=== PATIENT | male | born 1945 | race Caucasian/White ===

== ENCOUNTER 2017-06-23 15:01 | Emergency (ER) | payer BC, OTHER ==
[~2017-06-23] VITALS: Ht 170.2 cm; Wt 75.3 kg
[~2017-06-23 15:01] MED LIST: BENAZEPRIL HCL/1 TA2 PO; BIO-CEF500 MG PO
[2017-06-23 19:20] VITALS: BP 154/60
== END 2017-06-23 16:32 | disposition home or self-care (01) ==
LOC: ED 15:01
DX: H66.93 Otitis media, unspecified, bilateral (principal); I10 Essential (primary) hypertension; E11.9 Type 2 diabetes mellitus without complications; Z79.84 Long term (current) use of oral hypoglycemic drugs; Z79.899 Other long term (current) drug therapy

== ENCOUNTER 2017-09-07 23:06 | Emergency (ER) | payer BC, OTHER ==
[2017-09-07 23:45] VITALS: BP 130/70
== END 2017-09-08 03:14 | disposition left against medical advice (07) ==
LOC: ED 23:06
DX: Z53.21 Procedure and treatment not carried out due to patient leaving prior to being seen by health care provider (principal)

== ENCOUNTER 2017-09-13 00:42 | Emergency (ER) | payer BC, OTHER ==
[~2017-09-13] VITALS: Ht 172.7 cm; Wt 78.5 kg
[2017-09-13 00:50] VITALS: Ht 172.7 cm; Wt 78.5 kg
[2017-09-13 02:09] VITALS: BP 142/74
== END 2017-09-13 02:10 | disposition home or self-care (01) ==
LOC: ED 00:42
DX: R21 Rash and other nonspecific skin eruption (principal); I10 Essential (primary) hypertension; E11.9 Type 2 diabetes mellitus without complications; E78.00 Pure hypercholesterolemia, unspecified
CPT/HCPCS: J1200; J2930

== ENCOUNTER 2017-11-03 21:50 | Emergency (ER) | payer BC, OTHER ==
[~2017-11-03] VITALS: Ht 170.2 cm; Wt 76.2 kg
[2017-11-03 22:07] VITALS: Ht 170.2 cm; Wt 76.2 kg
[2017-11-04 01:53] VITALS: BP 133/72
== END 2017-11-04 01:53 | disposition home or self-care (01) ==
LOC: ED 21:50
DX: M54.5 Low back pain (principal); E11.9 Type 2 diabetes mellitus without complications; I10 Essential (primary) hypertension; E78.00 Pure hypercholesterolemia, unspecified

== ENCOUNTER 2019-03-02 14:57 | Emergency (ER) | payer BC, OTHER ==
[~2019-03-02] VITALS: Ht 167.6 cm; Wt 78.9 kg
[2019-03-02 15:01] VITALS: Ht 167.6 cm; Wt 78.9 kg
[2019-03-02 15:25] LABS: BASOPHIL % 0.3 % (0-2); PLATELET COUNT 336 x10^3mcL (130-400); RED CELL DISTRIBUTION WIDTH 14.2 % (11.5-14.5)
[2019-03-02 15:47] LABS: ALBUMIN 3.7 g/dL (3.4-5.0); ALKALINE PHOSPHATASE 66 U/L (46-116); ALT/SGPT 35 U/L (16-63); AST/SGOT 12 U/L (15-37); BILIRUBIN TOTAL 0.2 mg/dL (0.20-1.00); CALCIUM 9.3 mg/dL (8.5-10.1); CARBON DIOXIDE 25.2 mmol/L (21-32); CHLORIDE SERUM 100 mmol/L (98-107); CREATININE SERUM 1.2 mg/dL (0.7-1.3); GLUCOSE SERUM 150 mg/dL (74-106); POTASSIUM SERUM 4.3 mmol/L (3.5-5.1); SODIUM SERUM 135 mmol/L (136-145); TOTAL PROTEIN, SERUM 7.1 g/dL (6.4-8.2)
[2019-03-02 16:16] VITALS: BP 131/63
== END 2019-03-02 16:16 | disposition home or self-care (01) ==
LOC: ED 14:57
DX: J40 Bronchitis, not specified as acute or chronic (principal); F17.210 Nicotine dependence, cigarettes, uncomplicated; E78.00 Pure hypercholesterolemia, unspecified; I10 Essential (primary) hypertension; E11.9 Type 2 diabetes mellitus without complications; Z98.890 Other specified postprocedural states
CPT/HCPCS: 36415; 99406

== ENCOUNTER 2019-05-03 13:45 | Emergency (ER) | payer BC, OTHER ==
[~2019-05-03] VITALS: Ht 170.2 cm; Wt 75.7 kg
[2019-05-03 13:52] VITALS: Ht 170.2 cm; Wt 75.7 kg
[2019-05-03 14:25] LABS: BASOPHIL % 0.3 % (0-2); RED CELL DISTRIBUTION WIDTH 14.1 % (11.5-14.5)
[2019-05-03 14:28] LABS: PLATELET COUNT 597 x10^3mcL (130-400)
[2019-05-03 15:07] LABS: ALBUMIN 3.7 g/dL (3.4-5.0); ALKALINE PHOSPHATASE 78 U/L (46-116); ALT/SGPT 30 U/L (16-63); AST/SGOT 22 U/L (15-37); BILIRUBIN TOTAL 0.3 mg/dL (0.20-1.00); CALCIUM 8.8 mg/dL (8.5-10.1); CARBON DIOXIDE 24.7 mmol/L (21-32); CREATININE SERUM 1.6 mg/dL (0.7-1.3); GLUCOSE SERUM 139 mg/dL (74-106); TOTAL PROTEIN, SERUM 7.3 g/dL (6.4-8.2)
[2019-05-03 15:30] LABS: CHLORIDE SERUM 99 mmol/L (98-107); SODIUM SERUM 137 mmol/L (136-145)
[2019-05-03 17:27] LABS: microscopic required? NO
[2019-05-03 17:51] LABS: urine erythrocyte NEGATIVE (NEGATIVE)
[2019-05-03 18:59] VITALS: BP 141/60
== END 2019-05-03 18:59 | disposition home or self-care (01) ==
LOC: ED 13:45
DX: E86.0 Dehydration (principal); R11.2 Nausea with vomiting, unspecified; F17.210 Nicotine dependence, cigarettes, uncomplicated; E78.00 Pure hypercholesterolemia, unspecified; I10 Essential (primary) hypertension; E11.9 Type 2 diabetes mellitus without complications; Z88.5 Allergy status to narcotic agent; Z71.6 Tobacco abuse counseling
CPT/HCPCS: 82962; 99406; J2405; J7030

== ENCOUNTER 2019-10-04 17:13 | Emergency (ER) | payer OTHER ==
[~2019-10-04] VITALS: Ht 170.2 cm; Wt 77.1 kg
[2019-10-04 17:23] VITALS: Ht 170.2 cm; Wt 77.1 kg
[2019-10-04 18:47] LABS: BASOPHIL % 0.4 % (0-2); PLATELET COUNT 380 x10^3mcL (130-400)
[2019-10-04 18:52] LABS: RED CELL DISTRIBUTION WIDTH 18.5 % (11.5-14.5)
[2019-10-04 19:05] LABS: CALCIUM 8.9 mg/dL (8.5-10.1); CARBON DIOXIDE 27.1 mmol/L (21-32); CHLORIDE SERUM 98 mmol/L (98-107); CREATININE SERUM 1.2 mg/dL (0.7-1.3); GLUCOSE SERUM 151 mg/dL (74-106); POTASSIUM SERUM 4.1 mmol/L (3.5-5.1); SODIUM SERUM 136 mmol/L (136-145)
[2019-10-04 19:10] LABS: ALBUMIN 4.1 g/dL (3.4-5.0); ALKALINE PHOSPHATASE 76 U/L (46-116); ALT/SGPT 30 U/L (16-63); AST/SGOT 18 U/L (15-37); BILIRUBIN TOTAL 0.2 mg/dL (0.20-1.00); TOTAL PROTEIN, SERUM 7.6 g/dL (6.4-8.2)
[2019-10-04 19:19] LABS: C REACTIVE PROTEIN < 0.2 mg/dL (<=0.9)
[2019-10-04 21:26] VITALS: BP 107/55
== END 2019-10-04 21:37 | disposition home or self-care (01) ==
LOC: ED 17:13
PROVIDERS: Emergency Medicine
DX: L03.113 Cellulitis of right upper limb (principal); E78.00 Pure hypercholesterolemia, unspecified; I10 Essential (primary) hypertension; E11.9 Type 2 diabetes mellitus without complications; Z88.5 Allergy status to narcotic agent; Z98.890 Other specified postprocedural states
CPT/HCPCS: 36415; J2543

== ENCOUNTER 2019-10-06 15:28 | Emergency (ER) | payer OTHER ==
[~2019-10-06] VITALS: Ht 177.8 cm; Wt 77.1 kg
[2019-10-06 15:45] VITALS: BP 133/48; Ht 177.8 cm; Wt 77.1 kg
[2019-10-06 16:09] LABS: BASOPHIL % 0.1 % (0-2); PLATELET COUNT 340 x10^3mcL (130-400); RED CELL DISTRIBUTION WIDTH 18.4 % (11.5-14.5)
[2019-10-06 16:13] LABS: CALCIUM 8.6 mg/dL (8.5-10.1); CARBON DIOXIDE 22.9 mmol/L (21-32); CHLORIDE SERUM 100 mmol/L (98-107); CREATININE SERUM 1.5 mg/dL (0.7-1.3); GLUCOSE SERUM 144 mg/dL (74-106); POTASSIUM SERUM 4.6 mmol/L (3.5-5.1); SODIUM SERUM 134 mmol/L (136-145)
[2019-10-06 16:19] LABS: ALBUMIN 3.6 g/dL (3.4-5.0); ALKALINE PHOSPHATASE 72 U/L (46-116); ALT/SGPT 29 U/L (16-63); AST/SGOT 19 U/L (15-37); BILIRUBIN TOTAL 0.2 mg/dL (0.20-1.00); TOTAL PROTEIN, SERUM 6.8 g/dL (6.4-8.2)
== END 2019-10-06 17:08 | disposition home or self-care (01) ==
LOC: ED 15:28
PROVIDERS: Emergency Medicine
DX: S50.811A Abrasion of right forearm, initial encounter (principal); L03.113 Cellulitis of right upper limb; I10 Essential (primary) hypertension; E11.9 Type 2 diabetes mellitus without complications; E78.00 Pure hypercholesterolemia, unspecified; Z98.890 Other specified postprocedural states; Z88.8 Allergy status to other drugs, medicaments and biological substances; W01.0XXA Fall on same level from slipping, tripping and stumbling without subsequent striking against object, initial encounter; Y93.89 Activity, other specified; Y92.89 Other specified places as the place of occurrence of the external cause; Y99.8 Other external cause status
CPT/HCPCS: 36415; 82962; 90715

== ENCOUNTER 2019-10-07 23:21 | Emergency (ER) | payer OTHER ==
[~2019-10-07] VITALS: Ht 170.2 cm; Wt 77.1 kg
[2019-10-07 23:32] VITALS: BP 112/73; Ht 170.2 cm; Wt 77.1 kg
== END 2019-10-08 01:53 | disposition left against medical advice (07) ==
LOC: ED 23:21
DX: Z53.21 Procedure and treatment not carried out due to patient leaving prior to being seen by health care provider (principal)

== ENCOUNTER 2019-10-08 11:30 | Observation (INO) | payer OTHER ==
[~2019-10-08] VITALS: Ht 170.2 cm; Wt 77.1 kg
[2019-10-08 11:41] VITALS: Ht 170.2 cm; Wt 77.1 kg
[2019-10-08 13:05] LABS: microscopic required? NO
[2019-10-08 13:16] LABS: BASOPHIL % 0.2 % (0-2); PLATELET COUNT 333 x10^3mcL (130-400)
[2019-10-08 13:18] LABS: RED CELL DISTRIBUTION WIDTH 18.8 % (11.5-14.5)
[2019-10-08 13:24] LABS: CALCIUM 8.8 mg/dL (8.5-10.1); CARBON DIOXIDE 22.8 mmol/L (21-32); CHLORIDE SERUM 100 mmol/L (98-107); CREATININE SERUM 1.8 mg/dL (0.7-1.3); GLUCOSE SERUM 145 mg/dL (74-106); POTASSIUM SERUM 4.9 mmol/L (3.5-5.1); SODIUM SERUM 135 mmol/L (136-145)
[2019-10-08 13:27] LABS: ALBUMIN 3.5 g/dL (3.4-5.0); ALKALINE PHOSPHATASE 65 U/L (46-116); ALT/SGPT 28 U/L (16-63); AST/SGOT 22 U/L (15-37); BILIRUBIN TOTAL 0.3 mg/dL (0.20-1.00); TOTAL PROTEIN, SERUM 6.5 g/dL (6.4-8.2)
[2019-10-08 13:36] LABS: UA SPECIFIC GRAVITY 1.015 (1.005-1.035); urine erythrocyte NEGATIVE (NEGATIVE)
[2019-10-08 15:57] LABS: BASOPHIL % 0.6 % (0-2); PLATELET COUNT 317 x10^3mcL (130-400); RED CELL DISTRIBUTION WIDTH 18.7 % (11.5-14.5)
[2019-10-08 16:38] VITALS: BP 125/70
[2019-10-08 16:48] LABS: ALBUMIN 3.5 g/dL (3.4-5.0); ALKALINE PHOSPHATASE 64 U/L (46-116); ALT/SGPT 30 U/L (16-63); BILIRUBIN TOTAL 0.2 mg/dL (0.20-1.00); CALCIUM 8.9 mg/dL (8.5-10.1); CARBON DIOXIDE 24.3 mmol/L (21-32); CHLORIDE SERUM 100 mmol/L (98-107); CREATININE SERUM 1.6 mg/dL (0.7-1.3); GLUCOSE SERUM 106 mg/dL (74-106); POTASSIUM SERUM 4.7 mmol/L (3.5-5.1); SODIUM SERUM 134 mmol/L (136-145); TOTAL PROTEIN, SERUM 6.6 g/dL (6.4-8.2)
[2019-10-08 17:30] LABS: AST/SGOT 18 U/L (15-37)
[2019-10-08 20:29] VITALS: BP 130/48
[2019-10-09 05:20] VITALS: BP 126/57
[2019-10-09 08:50] VITALS: BP 138/47
[2019-10-09 12:42] VITALS: BP 132/55
[2019-10-09 15:57] LABS: BASOPHIL % 0.4 % (0-2); PLATELET COUNT 323 x10^3mcL (130-400)
[2019-10-09 16:04] LABS: RED CELL DISTRIBUTION WIDTH 18.4 % (11.5-14.5)
[2019-10-09 16:09] LABS: ALBUMIN 3.6 g/dL (3.4-5.0); ALKALINE PHOSPHATASE 68 U/L (46-116); ALT/SGPT 27 U/L (16-63); AST/SGOT 21 U/L (15-37); BILIRUBIN TOTAL 0.3 mg/dL (0.20-1.00); CALCIUM 8.8 mg/dL (8.5-10.1); CARBON DIOXIDE 27.1 mmol/L (21-32); CHLORIDE SERUM 97 mmol/L (98-107); CREATININE SERUM 1.4 mg/dL (0.7-1.3); GLUCOSE SERUM 126 mg/dL (74-106); POTASSIUM SERUM 4.4 mmol/L (3.5-5.1); SODIUM SERUM 133 mmol/L (136-145); TOTAL PROTEIN, SERUM 6.9 g/dL (6.4-8.2)
[2019-10-09 16:56] VITALS: BP 137/54
[2019-10-09 21:13] VITALS: BP 91/52
[2019-10-10 05:14] VITALS: BP 139/58
[2019-10-10 06:58] LABS: BASOPHIL % 0.2 % (0-2); PLATELET COUNT 328 x10^3mcL (130-400)
[2019-10-10 07:28] LABS: RED CELL DISTRIBUTION WIDTH 18.7 % (11.5-14.5)
[2019-10-10 08:18] VITALS: BP 146/56
[2019-10-10 11:11] VITALS: BP 146/56
== END 2019-10-10 11:46 | disposition home or self-care (01) ==
LOC: ED 11:30 → MU 15:26
PROVIDERS: Emergency Medicine; Internal Medicine Pulmonary Disease; ADMIT Hospitalist
DX: L03.113 Cellulitis of right upper limb (principal); E11.9 Type 2 diabetes mellitus without complications; I10 Essential (primary) hypertension; F17.210 Nicotine dependence, cigarettes, uncomplicated
CPT/HCPCS: G0378; J0690; J1644; J3370; J3490; J7050; Q0092; Q0163

== ENCOUNTER 2019-10-16 20:06 | Emergency (ER) | payer OTHER ==
[~2019-10-16] VITALS: Ht 170.2 cm; Wt 76.2 kg
[2019-10-16 20:11] VITALS: Ht 170.2 cm; Wt 76.2 kg
[2019-10-16 21:04] VITALS: BP 138/82
== END 2019-10-16 21:04 | disposition home or self-care (01) ==
LOC: ED 20:06
DX: L03.114 Cellulitis of left upper limb (principal); L03.113 Cellulitis of right upper limb; L40.9 Psoriasis, unspecified; G89.29 Other chronic pain; M54.9 Dorsalgia, unspecified; I10 Essential (primary) hypertension; E78.00 Pure hypercholesterolemia, unspecified
CPT/HCPCS: Q0163

== ENCOUNTER 2019-11-05 22:35 | Emergency (ER) | payer OTHER ==
[~2019-11-05] VITALS: Ht 170.2 cm; Wt 75.7 kg
[2019-11-05 23:01] VITALS: Ht 170.2 cm; Wt 75.7 kg
[2019-11-06 01:46] VITALS: BP 122/46
== END 2019-11-06 01:46 | disposition home or self-care (01) ==
LOC: ED 22:35
DX: J44.1 Chronic obstructive pulmonary disease with (acute) exacerbation (principal); I10 Essential (primary) hypertension; E11.9 Type 2 diabetes mellitus without complications; E78.00 Pure hypercholesterolemia, unspecified; Z88.5 Allergy status to narcotic agent
CPT/HCPCS: 87804; J1885; Q0092

== ENCOUNTER 2019-11-24 19:22 | Emergency (ER) | payer OTHER ==
[~2019-11-24] VITALS: Ht 170.2 cm; Wt 76.2 kg
[2019-11-24 20:59] VITALS: BP 134/89
== END 2019-11-24 20:55 | disposition home or self-care (01) ==
LOC: ED 19:22
DX: S51.811A Laceration without foreign body of right forearm, initial encounter (principal); I10 Essential (primary) hypertension; E11.9 Type 2 diabetes mellitus without complications; E78.00 Pure hypercholesterolemia, unspecified; Z88.5 Allergy status to narcotic agent; W18.30XA Fall on same level, unspecified, initial encounter; Y93.89 Activity, other specified; Y92.89 Other specified places as the place of occurrence of the external cause; Y99.8 Other external cause status

== ENCOUNTER 2019-12-10 20:49 | Emergency (ER) | payer OTHER ==
[~2019-12-10] VITALS: Ht 170.2 cm; Wt 74.4 kg
[2019-12-10 20:59] VITALS: Ht 170.2 cm; Wt 74.4 kg
[2019-12-10 21:50] VITALS: BP 168/63
== END 2019-12-10 21:54 | disposition home or self-care (01) ==
LOC: ED 20:49
DX: L03.113 Cellulitis of right upper limb (principal); L29.9 Pruritus, unspecified; I10 Essential (primary) hypertension; E11.9 Type 2 diabetes mellitus without complications; E78.00 Pure hypercholesterolemia, unspecified; Z98.890 Other specified postprocedural states; Z88.8 Allergy status to other drugs, medicaments and biological substances

== ENCOUNTER 2020-03-25 20:23 | Emergency (ER) | payer OTHER ==
[~2020-03-25] VITALS: Ht 170.2 cm; Wt 76.7 kg
[2020-03-25 20:35] VITALS: BP 133/70; Ht 170.2 cm; Wt 76.7 kg
== END 2020-03-25 22:05 | disposition home or self-care (01) ==
LOC: ED 20:23
DX: K64.4 Residual hemorrhoidal skin tags (principal); E78.00 Pure hypercholesterolemia, unspecified; Z98.890 Other specified postprocedural states; Z88.8 Allergy status to other drugs, medicaments and biological substances

== ENCOUNTER 2020-04-09 14:45 | Emergency (ER) | payer OTHER ==
[~2020-04-09] VITALS: Ht 167.6 cm; Wt 76.7 kg
[2020-04-09 14:52] VITALS: Ht 167.6 cm; Wt 76.7 kg
[2020-04-09 16:04] LABS: PLATELET COUNT 306 x10^3mcL (130-400)
[2020-04-09 16:07] LABS: RED CELL DISTRIBUTION WIDTH 15.5 % (11.5-14.5)
[2020-04-09 16:20] LABS: CALCIUM 8.8 mg/dL (8.5-10.1); CARBON DIOXIDE 34.1 mmol/L (21-32); CHLORIDE SERUM 96 mmol/L (98-107); CREATININE SERUM 1.2 mg/dL (0.7-1.3); GLUCOSE SERUM 125 mg/dL (74-106); POTASSIUM SERUM 4.1 mmol/L (3.5-5.1); SODIUM SERUM 131 mmol/L (136-145)
[2020-04-09 16:33] LABS: ALBUMIN 3.4 g/dL (3.4-5.0); ALKALINE PHOSPHATASE 74 U/L (46-116); ALT/SGPT 20 U/L (16-63); AST/SGOT 18 U/L (15-37); BILIRUBIN TOTAL 0.23 mg/dL (0.20-1.00); TOTAL PROTEIN, SERUM 6.4 g/dL (6.4-8.2)
[2020-04-09 19:05] VITALS: BP 128/76
== END 2020-04-09 19:05 | disposition left against medical advice (07) ==
LOC: ED 14:45
PROVIDERS: Emergency Medicine
DX: L03.114 Cellulitis of left upper limb (principal); R42 Dizziness and giddiness; I10 Essential (primary) hypertension; E78.00 Pure hypercholesterolemia, unspecified; Z88.8 Allergy status to other drugs, medicaments and biological substances
CPT/HCPCS: J0696; J7030; J7060

== ENCOUNTER 2020-04-16 00:01 | Emergency (ER) | payer OTHER ==
[~2020-04-16] VITALS: Ht 172.7 cm; Wt 76.7 kg
[2020-04-16 00:08] VITALS: Ht 172.7 cm; Wt 76.7 kg
[2020-04-16 01:42] LABS: PLATELET COUNT 316 x10^3mcL (130-400)
[2020-04-16 01:43] LABS: BASOPHIL % 2.9 % (0-2); RED CELL DISTRIBUTION WIDTH 14.7 % (11.5-14.5)
[2020-04-16 02:34] LABS: ALBUMIN 3.7 g/dL (3.4-5.0); ALKALINE PHOSPHATASE 68 U/L (46-116); ALT/SGPT 22 U/L (16-63); AST/SGOT 20 U/L (15-37); BILIRUBIN TOTAL 0.4 mg/dL (0.20-1.00); CALCIUM 9.3 mg/dL (8.5-10.1); CARBON DIOXIDE 22.7 mmol/L (21-32); CHLORIDE SERUM 89 mmol/L (98-107); CREATININE SERUM 1.3 mg/dL (0.7-1.3); GLUCOSE SERUM 143 mg/dL (74-106); POTASSIUM SERUM 3.7 mmol/L (3.5-5.1); TOTAL PROTEIN, SERUM 6.6 g/dL (6.4-8.2)
[2020-04-16 02:44] LABS: SODIUM SERUM 123 mmol/L (136-145)
[2020-04-16 04:09] VITALS: BP 163/57
== END 2020-04-16 04:09 | disposition left against medical advice (07) ==
LOC: ED 00:01 → EDBEDREQ 02:57 → ED 02:57 → DU 02:57
PROVIDERS: Emergency Medicine
DX: I24.9 Acute ischemic heart disease, unspecified (principal); E87.1 Hypo-osmolality and hyponatremia; F17.210 Nicotine dependence, cigarettes, uncomplicated; E78.00 Pure hypercholesterolemia, unspecified; I10 Essential (primary) hypertension; Z98.890 Other specified postprocedural states; Z88.8 Allergy status to other drugs, medicaments and biological substances
CPT/HCPCS: 83880; 99406; J7030; Q0092

== ENCOUNTER 2020-05-04 20:34 | Emergency (ER) | payer OTHER ==
[~2020-05-04] VITALS: Ht 170.2 cm; Wt 75.3 kg
[2020-05-04 22:37] VITALS: BP 143/60
== END 2020-05-04 22:38 | disposition home or self-care (01) ==
LOC: ED 20:34
DX: H65.93 Unspecified nonsuppurative otitis media, bilateral (principal); F17.210 Nicotine dependence, cigarettes, uncomplicated; E78.00 Pure hypercholesterolemia, unspecified; I10 Essential (primary) hypertension; Z98.890 Other specified postprocedural states; Z88.8 Allergy status to other drugs, medicaments and biological substances
CPT/HCPCS: 99406

== ENCOUNTER 2020-06-04 20:30 | Emergency (ER) | payer OTHER ==
[~2020-06-04] VITALS: Ht 170.2 cm; Wt 88.9 kg
[2020-06-04 20:45] VITALS: Ht 170.2 cm; Wt 88.9 kg
[2020-06-04 22:38] VITALS: BP 114/62
== END 2020-06-04 22:38 | disposition home or self-care (01) ==
LOC: ED 20:30
DX: J45.901 Unspecified asthma with (acute) exacerbation (principal); I10 Essential (primary) hypertension; E78.00 Pure hypercholesterolemia, unspecified; Z88.5 Allergy status to narcotic agent
CPT/HCPCS: 99406; Q0092

== ENCOUNTER 2020-10-01 00:21 | Emergency (ER) | payer OTHER ==
[~2020-10-01] VITALS: Ht 172.7 cm; Wt 80.7 kg
[2020-10-01 00:28] VITALS: Ht 172.7 cm; Wt 80.7 kg
[2020-10-01 02:35] VITALS: BP 166/58
== END 2020-10-01 02:36 | disposition home or self-care (01) ==
LOC: ED 00:21
DX: G44.209 Tension-type headache, unspecified, not intractable (principal); I10 Essential (primary) hypertension; E11.9 Type 2 diabetes mellitus without complications; J44.9 Chronic obstructive pulmonary disease, unspecified; E78.00 Pure hypercholesterolemia, unspecified; Z88.8 Allergy status to other drugs, medicaments and biological substances
CPT/HCPCS: J1885; J2765

== ENCOUNTER 2020-10-04 16:05 | Emergency (ER) | payer OTHER ==
[~2020-10-04] VITALS: Ht 172.7 cm; Wt 77.1 kg
[2020-10-04 16:07] VITALS: Ht 172.7 cm; Wt 77.1 kg
[2020-10-04 17:15] LABS: BASOPHIL % 1.5 % (0.2-1.5); PLATELET COUNT 319 x10^3mcL (152-348); RED CELL DISTRIBUTION WIDTH 13.3 % (12.1-16.2)
[2020-10-04 17:27] LABS: CALCIUM 9.3 mg/dL (8.5-10.1); CARBON DIOXIDE 28.6 mmol/L (21-32); CHLORIDE SERUM 98 mmol/L (98-107); CREATININE SERUM 1.5 mg/dL (0.7-1.3); GLUCOSE SERUM 144 mg/dL (74-106); SODIUM SERUM 133 mmol/L (136-145)
[2020-10-04 17:41] LABS: ALBUMIN 3.8 g/dL (3.4-5.0); ALKALINE PHOSPHATASE 69 U/L (46-116); ALT/SGPT 28 U/L (16-63); AST/SGOT 25 U/L (15-37); BILIRUBIN TOTAL 0.37 mg/dL (0.20-1.00); TOTAL PROTEIN, SERUM 6.9 g/dL (6.4-8.2)
[2020-10-04] MEDS ORDERED: VERTICALM25 MG PO (18:15)
[2020-10-04 18:25] VITALS: BP 139/65
== END 2020-10-04 18:25 | disposition home or self-care (01) ==
LOC: ED 16:05
PROVIDERS: Emergency Medicine
DX: R42 Dizziness and giddiness (principal); R51.9 Headache, unspecified; J44.9 Chronic obstructive pulmonary disease, unspecified; I10 Essential (primary) hypertension; E11.9 Type 2 diabetes mellitus without complications; E78.00 Pure hypercholesterolemia, unspecified
CPT/HCPCS: J8597

== ENCOUNTER 2020-11-02 11:17 | Inpatient (IN) | payer OTHER ==
[~2020-11-02] VITALS: Ht 170.2 cm; Wt 79.9 kg
[~2020-11-02 11:17] MED LIST changes: +VERTICALM25 MG PO
[2020-11-02 11:23] VITALS: Ht 170.2 cm; Wt 79.9 kg
[2020-11-02 12:03] LABS: BASOPHIL % 1.5 % (0.2-1.5); PLATELET COUNT 357 x10^3mcL (152-348); RED CELL DISTRIBUTION WIDTH 13.2 % (12.1-16.2)
[2020-11-02 12:24] LABS: ALBUMIN 3.9 g/dL (3.4-5.0); ALKALINE PHOSPHATASE 72 U/L (46-116); ALT/SGPT 42 U/L (16-63); AST/SGOT 32 U/L (15-37); BILIRUBIN TOTAL 0.5 mg/dL (0.20-1.00); CALCIUM 9.4 mg/dL (8.5-10.1); CARBON DIOXIDE 24.7 mmol/L (21-32); CHLORIDE SERUM 89 mmol/L (98-107); CREATININE SERUM 1.1 mg/dL (0.7-1.3); GLUCOSE SERUM 184 mg/dL (74-106); POTASSIUM SERUM 4.5 mmol/L (3.5-5.1); TOTAL PROTEIN, SERUM 7.2 g/dL (6.4-8.2)
[2020-11-02 12:26] LABS: SODIUM SERUM 123 mmol/L (136-145)
[2020-11-02] MEDS ORDERED: CARVEDILOL6.25 M1 PO (12:32)
[2020-11-02] MEDS ORDERED: AMLODIPINE BESYL5 M2 PO (12:32)
[2020-11-02] MEDS ORDERED: OLMESARTAN-HCT1 EAC2 PO (12:33)
[2020-11-02] MEDS ORDERED: ADULT LOW DOSE81 MG PO (12:34)
[2020-11-02] MEDS ORDERED: METFORMIN HCL500 M4 PO (12:34)
[2020-11-02] MEDS ORDERED: ANORO ELLIPTA1 POW IH (12:35)
[2020-11-02 14:08] VITALS: BP 158/84
[2020-11-02 14:56] VITALS: BP 180/65
[2020-11-02 16:08] VITALS: BP 163/66
[2020-11-02] MEDS ORDERED: SOD1 PO (16:56)
[2020-11-02] MEDS ORDERED: RAYOS5 MG PO (16:57)
[2020-11-02 20:20] VITALS: BP 101/65
== END 2020-11-02 23:15 | disposition left against medical advice (07) | DRG 191 ==
LOC: ED 11:17 → DU 12:48
PROVIDERS: ADMIT Hospitalist; ATTEND Emergency Medicine
DX: J44.1 Chronic obstructive pulmonary disease with (acute) exacerbation (principal); E87.1 Hypo-osmolality and hyponatremia; Z20.822 Contact with and (suspected) exposure to COVID-19; F17.200 Nicotine dependence, unspecified, uncomplicated; I10 Essential (primary) hypertension; E11.9 Type 2 diabetes mellitus without complications; E78.00 Pure hypercholesterolemia, unspecified; R00.1 Bradycardia, unspecified; T50.905A Adverse effect of unspecified drugs, medicaments and biological substances, initial encounter; Y92.89 Other specified places as the place of occurrence of the external cause
CPT/HCPCS: 83880; G0378; J1644; J2920; J2930; J7030; J7040